=== PATIENT | male | born 1945 | race Caucasian/White ===

== ENCOUNTER 2018-11-11 18:30 | Emergency (ER) | payer MEDICARE, OTHER ==
--- NOTE | 2018-11-11 19:07 | EDM.PDOC ---
ED HPI GENERAL MEDICAL PROBLEM - General Chief Complaint: Syncope Stated Complaint: [facility] Time Seen by Provider: 11/11/18 18:41 Source of Information: Reports: Patient, Family, RN Notes Reviewed History Limitations: Reports: No Limitations - History of Present Illness INITIAL COMMENTS - FREE TEXT/NARRATIVE: 73-year-old gentleman presents emergency department today following a syncopal event. He has a known history of diabetes mellitus type 2 insulin-dependent, states he has been taking his regular insulin but admits he did not eat well today was standing in line outside the restaurant felt very lightheaded He awoke on the ground EMS services were called, On initial assessment found his blood sugar to be 40 given 1 glucose by EMS - Related Data Allergies Allergy/AdvReac Type Severity Reaction Status Date / Time No Known Allergies Allergy Verified 11/11/18 18:46 Home Meds: Home Meds Insulin Glargine,Hum.Rec.Anlog [Basaglar Kwikpen U-100] 56 unit SQ BEDTIME 11/11 [History] Insulin Lispro [HumaLOG] 18 unit SQ ASDIRECTED 11/11/18 [History] Past Medical History Cardiovascular History: Reports: Afib, Hypertension Musculoskeletal History: Reports: Fracture Endocrine/Metabolic History: Reports: Diabetes, Type II - Past Surgical History HEENT Surgical History: Reports: Tonsillectomy GI Surgical History: Reports: Colonoscopy, Polypectomy Male Surgical History: Reports: Vasectomy Musculoskeletal Surgical History: Reports: Arthroscopic Knee Social & Family History - Tobacco Use Smoking Status *Q: Former Smoker Used Tobacco, but Quit: Yes Month/Year Tobacco Last Used: 15 years - Caffeine Use Caffeine Use: Reports: Coffee - Recreational Drug Use Recreational Drug Use: No ED ROS GENERAL - Review of Systems Review Of Systems: See Below Constitutional: Reports: No Symptoms Respiratory: Reports: No Symptoms Cardiovascular: Reports: Syncope GI/Abdominal: Reports: No Symptoms ED EXAM, GENERAL - Physical Exam Exam: See Below Exam Limited By: No Limitations General Appearance: Alert, WD/WN, No Apparent Distress Respiratory/Chest: No Respiratory Distress, Lungs Clear, Normal Breath Sounds, No Accessory Muscle Use, Chest Non-Tender Cardiovascular: No Murmur, Irregularly Irregular GI/Abdominal: Soft, Non-Tender Course - Vital Signs Last Recorded V/S: Last Vital Signs Temp 96.4 F 11/11/18 18:41 Pulse 88 11/11/18 18:41 Resp 16 11/11/18 18:41 BP 187/88 H 11/11/18 18:41 Pulse Ox 96 11/11/18 18:41 - Orders/Labs/Meds Orders: Active Orders 24 hr Category Date Time Status EKG Documentation Completion [RC] ASDIRECTED Care 11/11/18 19:03 Active EKG 12 Lead [EK] Stat Ther 11/11/18 19:03 Ordered Labs: Laboratory Tests 11/11/18 11/11/18 Range/Units 19:02 19:02 WBC 13.4 H (4.5-11.0) K/uL RBC 5.34 (4.30-5.90) M/uL Hgb 15.6 H (12.0-15.0) g/dL Hct 45.9 (40.0-54.0) % MCV 86 (80-98) fL MCH 29 (27-31) pg MCHC 34 (32-36) % Plt Count 228 (150-400) K/uL Neut % (Auto) 85 H (36-66) % Lymph % (Auto) 6 L (24-44) % Fannin % (Auto) 8 H (2-6) % Eos % (Auto) 1 L (2-4) % Baso % (Auto) 0 (0-1) % Sodium 142 (140-148) mmol/L Potassium 3.5 L (3.6-5.2) mmol/L Chloride 104 (100-108) mmol/L Carbon Dioxide 33 H (21-32) mmol/L Anion Gap 8.5 (5.0-14.0) mmol/L BUN 15 (7-18) mg/dL Creatinine 0.9 (0.8-1.3) mg/dL Est Cr Clr Drug Dosing 66.95 mL/min Estimated GFR (MDRD) > 60 (>60) Glucose 150 H (74-106) mg/dL Calcium 9.6 (8.5-10.1) mg/dL Departure - Departure Time of Disposition: 19:56 Disposition: Home, Self-Care 01 Condition: Fair Clinical Impression: Syncope Qualifiers: Syncope type: unspecified Qualified Code(s): R55 - Syncope and collapse Referrals: PCP,None [Primary Care Provider] - Forms: ED Department Discharge Additional Instructions: Continue with regular medications, and regular diet, follow-up with your primary care upon returning home if not better call return to the emergency department worsening symptoms - My Orders Last 24 Hours: My Active Orders 11/11/18 19:03 EKG Documentation Completion [RC] ASDIRECTED EKG 12 Lead [EK] Stat - Assessment/Plan Last 24 Hours: My Active Orders 11/11/18 19:03 EKG Documentation Completion [RC] ASDIRECTED EKG 12 Lead [EK] Stat Plan: Assessment Acuity = acute Site and laterality = syncopal event Etiology = secondary to hypoglycemia Manifestations = none Location of injury = Home Lab values = WBC elevated 14.5 consistent with his with leukocytosis, BMP unremarkable EKG demonstrates a sinus rhythm signs of ischemia Plan This syncopal event was probably related to a warm day regular insulin dosing and poor oral intake when he became hypoglycemic she has syncopal event. Recommend he continue with his regular insulin and then regular diet follow-up with primary care upon returning home if no improvement This note was dictated using [employer] voice recognition software please call with any questions on syntax or grammar.
== END 2018-11-11 20:07 | disposition home or self-care (01) ==
LOC: JP.ED 18:30
DX: R55 Syncope and collapse (principal); E11.9 Type 2 diabetes mellitus without complications; Z79.4 Long term (current) use of insulin; Z87.891 Personal history of nicotine dependence
CPT/HCPCS: 36415; 80048; 85025; 93005; 93010; 99283; 99284-25